=== PATIENT | female | born 1945 | race Caucasian/White ===

== ENCOUNTER → 2021-07-07 | Outpatient (CLI) | payer MEDICARE, OTHER ==
[~2021-07-07] MED LIST: ALLEGRA ALLERG180 MG PO; EUTHYROX50 MCG PO; HYDROCODON-ACE1 EAC4 PO; LEVOTHYROXINE50 MCG PO; LIPITOR TAB 2020 MG PO; PAIN RELIEF1 EACH TOP; TOPROL XL25 MG PO; TRIAMTERENE-HC1 EAC1 PO; TRIAMTERENE-HC1 EACH PO; TYLENOL EXTRA500 MG PO; ZOLOFT25 MG PO
[2021-07-07 11:59] LABS: HEMOGLOBIN 14.6 gm/dl (12.3-15.3); RED BLOOD COUNT 4.67 M/UL (4.00-5.10); WHITE BLOOD COUNT 5.4 K/UL (4.5-11.0)
[2021-07-07 12:28] LABS: BUN/CREATININE RATIO 20 (0-10)
== END ==
LOC: OPSV2 10:51
PROVIDERS: Orthopaedic Surgery
DX: Z01.818 Encounter for other preprocedural examination (principal); G56.01 Carpal tunnel syndrome, right upper limb
CPT/HCPCS: 36415; 80048; 85025; 93005

== ENCOUNTER → 2021-07-16 | Day surgery (SDC) | payer MEDICARE, OTHER ==
[~2021-07-16] VITALS: Ht 157.5 cm; Wt 60.3 kg
== END | disposition home or self-care (01) ==
LOC: OR 06:21
DX: G56.01 Carpal tunnel syndrome, right upper limb (principal); M19.90 Unspecified osteoarthritis, unspecified site; M81.0 Age-related osteoporosis without current pathological fracture; I10 Essential (primary) hypertension; E78.00 Pure hypercholesterolemia, unspecified; E03.9 Hypothyroidism, unspecified; J30.9 Allergic rhinitis, unspecified; F41.9 Anxiety disorder, unspecified; Z79.899 Other long term (current) drug therapy; Z88.5 Allergy status to narcotic agent; Z20.822 Contact with and (suspected) exposure to COVID-19; Z87.440 Personal history of urinary (tract) infections; Z90.710 Acquired absence of both cervix and uterus
CPT/HCPCS: J1100; J2001; J2405; J2704; J3010; J7030; J7120